=== PATIENT | male | born 1975 | race American Indian/Alaskan Native ===

== ENCOUNTER 2017-12-12 12:29 | Emergency (ER) | payer OTHER ==
[2017-12-12 12:53] VITALS: BP 132/96
[2017-12-12] MEDS ORDERED: NACL 0.9% 1000 ML 1,000 ML IV ONE (13:17)
[2017-12-12] MEDS ORDERED: ZOFRAN IV ONE (13:17)
[2017-12-12] MEDS ORDERED: PEPCID IV ONE (13:17)
--- NOTE | 2017-12-12 13:19 | Emergency Department Report ---
Blank Doc - Documentation Documentation: Patient is a 42-year-old -Swazi male who is presenting with nausea and vomiting for the past 2-3 days. Patient states he also feels dizzy and off balance especially when he stands for the past several days as well. Patient has not been able to keep anything down. Patient is denying any abdominal pain at this time but does have a history of pancreatitis. Patient will be moved to a treatment area for IV fluids and nausea control and laboratory studies to rule out electrolyte abnormalities. Patie brief physical exam was tachycardic but did not have any abdominal pain at this time. Patient be reassessed. Nt
[2017-12-12 14:46] LABS: Hematocrit 46.5 % (35.5-45.6); Hemoglobin 15.3 gm/dl (11.8-15.2); Mean Corpuscular HGB Conc 33 % (32-34); Mean Corpuscular Hemoglobin 30 pg (28-32); Mean Corpuscular Volume 90 fl (84-94); Platelet Count 183 K/mm3 (140-440); Red Blood Count 5.18 M/mm3 (3.65-5.03); Red Cell Distribution Width 15.5 % (13.2-15.2)
[2017-12-12 15:05] LABS: Alanine Aminotransferase 19 units/L (7-56); Albumin 3.8 g/dL (3.9-5); BUN/Creatinine Ratio 6; Blood Urea Nitrogen 6 mg/dL (9-20); Calcium 9.1 mg/dL (8.4-10.2); Hemolysis Index 15; Lipase 11 units/L (13-60)
[2017-12-12] MEDS ORDERED: K-DUR PO ONE (16:19)
--- NOTE | 2017-12-12 16:41 | Emergency Department Report ---
Vomiting/Diarrhea - HPI Chief Complaint: Abdominal Pain Stated Complaint: HYPERTENSIVE/BACK PAIN Time Seen by Provider: 12/12/17 13:14 Duration: 3 Days Severity: moderate Nausea/Vomiting Severity: Moderate Diarrhea Severity: None Pain Severity: None Symptoms: No Watery Diarrhea, No Bloody diarrhea, No Fever, No Able to Tolerate Fluids, No Recent Unusual Foods, No Recent Untreated Water, No Recent use of Antibiotics, No Family w/ Similar Symptoms, No Contacts w/ Similar Symptoms, No Rash, No Hematuria, No Recent URI Symptoms Other History: Patient is a 42-year-old -Romanian male who is presenting with nausea and vomiting for the past 2-3 days. He has been unable to eat for the past 3 days. Patient states he also feels dizzy and off balance especially when he stands for the past several days as well. Patient has not been able to keep anything down. Patient is denying any abdominal pain at this time but does have a history of pancreatitis. Patient reports reports going to repeat my Real with similar symptoms 1 month ago. They did a full workup rehydrated and sent him home. He is thinking about following up with primary care provider but decided to come here for evaluation first. Denies diarrhea, abdominal pain, fever, chest pain, shortness of breath, and tarry stools. ED Review of Systems ROS: Stated complaint: HYPERTENSIVE/BACK PAIN Other details as noted in HPI Constitutional: denies: chills, fever ENT: denies: ear pain, throat pain, congestion Respiratory: denies: cough, shortness of breath, wheezing Cardiovascular: denies: chest pain, palpitations Gastrointestinal: nausea, vomiting. denies: abdominal pain, diarrhea, constipation, hematemesis, hematochezia Genitourinary: denies: urgency, dysuria, frequency, hematuria, discharge Neurological: denies: headache, weakness, numbness, paresthesias Psychiatric: denies: anxiety, depression ED Past Medical Hx - Past Medical History Hx Hypertension: Yes Hx Congestive Heart Failure: No Hx Diabetes: No Hx Asthma: Yes Hx COPD: No Additional medical history: pancreatitis - Surgical History Additional Surgical History: hemmeroid removal - Social History Smoking Status: Current Every Day Smoker - Medications Home Medications: Home Medications Medication Instructions Recorded Confirmed Last Taken Type Albuterol Sulfate [Ventolin HFA] 1 - 2 inh INHALATION Q4HR PRN #1 11/10/14 Unknown Rx hfa.aer.ad Atenolol [Tenormin] 50 mg PO QDAY #30 tablet 11/10/14 Unknown Rx Folic Acid [Folvite] 1 mg PO QDAY #30 tablet 11/10/14 Unknown Rx Ondansetron [Zofran] 4 mg PO Q6HR PRN #20 tablet 11/10/14 Unknown Rx Thiamine [Vitamin B-1] 100 mg PO QDAY #30 tablet 11/10/14 Unknown Rx oxyCODONE /ACETAMINOPHEN [Percocet 1 tab PO Q6HR PRN #20 tablet 11/10/14 Unknown Rx 5/325] Cephalexin [Keflex] 500 mg PO Q12HR #14 cap 12/12/17 Unknown Rx Ondansetron [Zofran Odt] 4 mg PO TID PRN #15 tab.rapdis 12/12/17 Unknown Rx Vomiting Diarrhea Exam - Exam General: Vital signs noted. No distress. Alert and acting appropriately. HEENT: Yes Moist Mucous Membranes, Yes Rhinorrhea (turbinates mildly congestion with clear discharge), No Pharyngeal Erythema, No Pharyngeal Exudates, No Conjuctival Injection, No Frontal Tenderness, No Maxillary Tenderness Neck: No Adenopathy, No Rigidity Lungs: Yes Clear Lung Sounds, Yes Good Air Exchange, No Wheezes, No Stridor, No Cough, No Nasal Flaring, No Retractions, No Use of Accessory Muscles Heart exam: Regular: Yes, Murmur: No, Tachycardia: No Abdomen: Tenderness: No, Peritoneal Signs: No, Distention: No, Hyperactive Bowel sounds: No Skin exam: Rash: No, Edema: No, Normal turgor: Yes Neurologic: Alert and oriented, shuffled gait. Musculoskeletal: Bilateral CVA tenderness ED Course Vital Signs 12/12/17 12:50 Temperature 98.1 F Pulse Rate 114 H Respiratory 18 Rate Blood Pressure 132/96 O2 Sat by Pulse 96 Oximetry ED Medical Decision Making - Lab Data Result diagrams: 12/12/17 14:14 12/12/17 14:14 - Radiology Data Radiology results: report reviewed PROCEDURE: CT thoracic spine without contrast. TECHNIQUE: Computerized axial tomography of the thoracic spine was performed from C7 - L1 without contrast material. HISTORY: Bilateral lower back pain. COMPARISON: No prior studies are available for comparison. FINDINGS: The thoracic vertebrae have normal height and alignment. There are no fractures. There is no subluxation. The disc spaces are well maintained. The spinal canal is widely patent. The posterior elements appear intact. The paravertebral soft tissues are unremarkable. IMPRESSION: No significant abnormality. - Medical Decision Making 42 y.o. -[place]ian male that presents with lightheadedness, nausea and vomiting for 3 days. Patient examined by me and stable. No distress noted. Vitals normal. Obtain CBC, CMP, urinalysis, lipase, and CT of thoracic. White blood cells elevated, potassium 2.9, signs of dehydration. Given normal saline 1 L bolus IV, Pepcid 20 mg by mouth, Zofran 4 mg IV, potassium 40 mEq po once in ER. CT read by radiologist, No significant abnormality. We will start Keflex 500 mg by mouth twice a day 7 days for elevated white count and Zofran 4 mg ODT 3 times a day when necessary #15 for nausea. Increase fluid intake for dehydration. Instructed to follow-up with primary care provider and referrals to rheumatology or neurology for further evaluation of abnormal gait. Discharged home. Critical care attestation.: If time is entered above; I have spent that time in minutes in the direct care of this critically ill patient, excluding procedure time. ED Disposition Clinical Impression: Dehydration, Abnormality of gait Nausea & vomiting Qualifiers: Vomiting type: unspecified Vomiting Intractability: non-intractable Qualified Code(s): R11.2 - Nausea with vomiting, unspecified Low back pain Qualifiers: Chronicity: acute Back pain laterality: bilateral Sciatica presence: without sciatica Qualified Code(s): M54.5 - Low back pain Elevated white blood cell count Qualifiers: Leukocytosis type: lymphocytosis Qualified Code(s): D72.820 - Lymphocytosis ( symptomatic) Disposition: DC-01 TO HOME OR SELFCARE Is pt being admited?: No Does the pt Need Aspirin: No Condition: Stable Instructions: Dehydration (ED) Additional Instructions: Vomiting/Diarrhea - HPI Chief Complaint: Abdominal Pain Stated Complaint: HYPERTENSIVE/BACK PAIN Time Seen by Provider: 12/12/17 13:14 Other History: Patient is a 42-year-old -Romanian male who is presenting with nausea and vomiting for the past 2-3 days. Patient states he also feels dizzy and off balance especially when he stands for the past several days as well. Patient has not been able to keep anything down. Patient is denying any abdominal pain at this time but does have a history of pancreatitis. ED Review of Systems ROS: Stated complaint: HYPERTENSIVE/BACK PAIN Other details as noted in HPI ED Past Medical Hx - Past Medical History Hx Hypertension: Yes Hx Congestive Heart Failure: No Hx Diabetes: No Hx Asthma: Yes Hx COPD: No Additional medical history: pancreatitis - Surgical History Additional Surgical History: hemmeroid removal - Social History Smoking Status: Current Every Day Smoker - Medications Home Medications: Home Medications Medication Instructions Recorded Confirmed Last Taken Type Albuterol Sulfate [Ventolin HFA] 1 - 2 inh INHALATION Q4HR PRN #1 11/10/14 Unknown Rx hfa.aer.ad Atenolol [Tenormin] 50 mg PO QDAY #30 tablet 11/10/14 Unknown Rx Folic Acid [Folvite] 1 mg PO QDAY #30 tablet 11/10/14 Unknown Rx Ondansetron [Zofran] 4 mg PO Q6HR PRN #20 tablet 11/10/14 Unknown Rx Thiamine [Vitamin B-1] 100 mg PO QDAY #30 tablet 11/10/14 Unknown Rx oxyCODONE /ACETAMINOPHEN [Percocet 1 tab PO Q6HR PRN #20 tablet 11/10/14 Unknown Rx 5/325] Vomiting Diarrhea Exam - Exam General: Vital signs noted. No distress. Alert and acting appropriately. HEENT: Yes Moist Mucous Membranes, Yes Rhinorrhea (turbinates mildly congestion with clear discharge), No Pharyngeal Erythema, No Pharyngeal Exudates, No Conjuctival Injection, No Frontal Tenderness, No Maxillary Tenderness Neck: No Adenopathy, No Rigidity Lungs: Yes Clear Lung Sounds, Yes Good Air Exchange, No Wheezes, No Stridor, No Cough, No Nasal Flaring, No Retractions, No Use of Accessory Muscles Heart exam: Regular: Yes, Murmur: No, Tachycardia: No Abdomen: Tenderness: No, Peritoneal Signs: No, Distention: No, Hyperactive Bowel sounds: No Skin exam: Rash: No, Edema: No, Normal turgor: Yes Neurologic: Alert and oriented, shuffled gait. Musculoskeletal: Bilateral CVA tenderness ED Course Vital Signs 12/12/17 12:50 Temperature 98.1 F Pulse Rate 114 H Respiratory 18 Rate Blood Pressure 132/96 O2 Sat by Pulse 96 Oximetry ED Medical Decision Making - Lab Data Result diagrams: 12/12/17 14:14 12/12/17 14:14 - Radiology Data Radiology results: report reviewed PROCEDURE: CT thoracic spine without contrast. TECHNIQUE: Computerized axial tomography of the thoracic spine was performed from C7 - L1 without contrast material. HISTORY: Bilateral lower back pain. COMPARISON: No prior studies are available for comparison. FINDINGS: The thoracic vertebrae have normal height and alignment. There are no fractures. There is no subluxation. The disc spaces are well maintained. The spinal canal is widely patent. The posterior elements appear intact. The paravertebral soft tissues are unremarkable. IMPRESSION: No significant abnormality. - Medical Decision Making 31 y.o. female that presents with nausea and vomiting and low back pain for 3 days. Patient examined by me and stable. No distress noted. Vitals stable. Obtain CBC, CMP, urinalysis, and CT of thoracic. White blood cells elevated, potassium 2.9, signs of dehydration. Given normal saline 1 L bolus IV, Pepcid 20 mg by mouth, Zofran 4 mg IV, potassium 40 mEq po once in ER. Discharged home. Critical care attestation.: If time is entered above; I have spent that time in minutes in the direct care of this critically ill patient, excluding procedure time. ED Disposition Clinical Impression: Dehydration Nausea & vomiting Qualifiers: Vomiting type: unspecified Vomiting Intractability: non-intractable Qualified Code(s): R11.2 - Nausea with vomiting, unspecified Low back pain Qualifiers: Chronicity: acute Back pain laterality: bilateral Sciatica presence: without sciatica Qualified Code(s): M54.5 - Low back pain Disposition: - TO HOME OR SELFCARE Is pt being admited?: No Does the pt Need Aspirin: No Condition: Stable Instructions: Dehydration (ED) Prescriptions: Cephalexin [Keflex] 500 mg PO Q12HR #14 cap Ondansetron [Zofran Odt] 4 mg PO TID PRN #15 tab.rapdis PRN Reason: Nausea And Vomiting Referrals: SOREN COON MD [Staff Physician] - 3-5 Days [facility] [Provider Group] - 3-5 Days DEANNA FARFAN MD [Referring] - 3-5 Days Time of Disposition: 19:45 Print Language: CHINESE
[2017-12-12 17:44] LABS: Band Neutrophils # (Manual) 0.2 K/mm3; Basophils % (Manual) 0 % (0.0-1.8); Eosinophils % (Manual) 0 % (0.0-4.3); Total Cells Counted 100
[2017-12-12 17:45] LABS: Platelet Estimate Consistent w Auto; RBC Morphology Normal
[2017-12-12 18:04] LABS: Bilirubin,Urine NEG (Negative); Blood,Urine NEG (Negative); Color,Urine Amber (Yellow); Mucus,Urine FEW /HPF
[2017-12-12 18:06] LABS: Protein,Urine >500 mg/dL (Negative)
--- NOTE | 2017-12-12 18:45 | Cat Scan Report ---
FINAL REPORT PROCEDURE: CT thoracic spine without contrast. TECHNIQUE: Computerized axial tomography of the thoracic spine was performed from C7 - L1 without contrast material. HISTORY: Bilateral lower back pain. COMPARISON: No prior studies are available for comparison. FINDINGS: The thoracic vertebrae have normal height and alignment. There are no fractures. There is no subluxation. The disc spaces are well maintained. The spinal canal is widely patent. The posterior elements appear intact. The paravertebral soft tissues are unremarkable. IMPRESSION: No significant abnormality.
== END 2017-12-12 20:00 | disposition home or self-care (01) ==
LOC: ED 12:29
DX: E86.0 Dehydration (principal); D72.820 Lymphocytosis (symptomatic); M54.5 Low back pain; I10 Essential (primary) hypertension; E11.9 Type 2 diabetes mellitus without complications; J45.909 Unspecified asthma, uncomplicated; F17.200 Nicotine dependence, unspecified, uncomplicated
CPT/HCPCS: 36415; 72128; 80053; 81001; 83690; 85007; 85025; 93005; 93010; 96361; 96374; 96375; 99284; J2405; J7030